=== PATIENT | male | born 1940 | race Caucasian/White ===

== ENCOUNTER 2018-11-20 09:14 | Emergency (ER) | payer MEDICARE ==
--- NOTE | 2018-11-20 09:35 | ED ---
HPI Chest Pain - HPI Summary HPI Summary: A 78 y/o male presents to [facility] with a chief complaint of chest pain since 00: 30 today. He notes that it is a constant pain. At triage he rated his pain as a 4/10 in severity. He also c/o cough and neck pain, claiming that his glands hurt. He denies sore throat, he describes his neck pain as a pressure. He denies fevers and chills or a Hx of bloodclots in his lungs or legs. He reports a Hx of HTN. He denies being around anyone who has been sick. He had surgery for a hernia. Vital signs while in room HR: 76bpm, O2 Sat: 97, BP: 138/82. - History of Current Complaint Chief Complaint: EDChestPainROMI Time Seen by Provider: 11/20/18 09:22 Hx Obtained From: Patient Onset/Duration: Started Hours Ago, Still Present Timing: Constant, Lasting Hours Initial Severity: Moderate Current Severity: Moderate Pain Intensity: 4 Pain Scale Used: 0-10 Numeric Chest Pain Location: Diffuse Chest Pain Radiates: No Character: Pressure/Squeezing Aggravating Factor(s): Nothing Alleviating Factor(s): Nothing Associated Signs and Symptoms: Positive: Cough, Other: - neck pain. Negative: Fever, Chills, Edema - Allergy/Home Medications Allergies/Adverse Reactions: Allergies Allergy/AdvReac Type Severity Reaction Status Date / Time moxifloxacin Allergy Rash Verified 11/20/18 09:24 Penicillins Allergy Rash Verified 11/20/18 09:24 Sulfa (Sulfonamide Allergy Rash Verified 11/20/18 09:24 Antibiotics) Home Medications: Home Medications Fish Oil 1,000 mg Softgel 2,000 mg PO DAILY 11/20/18 [History Confirmed 11/20/18 ] Levothyroxine Sodium 75 mcg PO QAM 11/20/18 [History Confirmed 11/20/18] Losartan Potassium 25 mg PO DAILY 11/20/18 [History Confirmed 11/20/18] Multivitamin [Once Daily] 1 tab PO DAILY 11/20/18 [History Confirmed 11/20/18] Simvastatin TAB(NF) [Zocor 10 MG (NF)] 10 mg PO QPM 11/20/18 [History Confirmed 11/20/18] Tamsulosin CAP* [Flomax CAP*] 0.4 mg PO DAILY 11/20/18 [History Confirmed ] Ubidecarenone [Co Q-10] 200 mg PO DAILY 11/20/18 [History Confirmed 11/20/18] PMH/Surg Hx/FS Hx/Imm Hx Endocrine/Hematology History: Reports: Hx Thyroid Disease - HYPOACTIVE Cardiovascular History: Reports: Hx Hypertension - CONTROL WITH MED, Other Cardiovascular Problems/Disorders - CHOLESTEROL CONTROL WITH MEDS Sensory History: Reports: Hx Contacts or Glasses - GLASSES Denies: Hx Hearing Aid Opthamlomology History: Reports: Hx Contacts or Glasses - GLASSES - Cancer History Cancer Type, Location and Year: cholesterol. prostate. pleurisy/pneumonia - Surgical History Surgery Procedure, Year, and Place: 2009 LEFT INGUINAL HERNIA REPAIR, [facility]. 1985 FIFTH METATARSAL LEFT HAND PINNED, [facility] – [place]. TONSILLECTOMY, [facility]. MELANOMA REMOVED TIMES 3, OFFICE Hx Anesthesia Reactions: No Infectious Disease History: No Infectious Disease History: Denies: Traveled Outside the [place] in Last 30 Days - Family History Known Family History: Negative: Blood Disorder - Social History Alcohol Use: Weekly Substance Use Type: Reports: None Amount Used/How Often: 1 PPD Length of Time of Smoking/Using Tobacco: 15 YEARS Review of Systems Negative: Fever, Chills ENT: Other - Positive: pain in glands on neck Negative: Sore Throat Positive: Chest Pain Positive: Cough All Other Systems Reviewed And Are Negative: Yes Physical Exam - Summary Physical Exam Summary: GENERAL: Patient is a well-developed and nourished M who is lying comfortable in the stretcher. Patient is not in any acute respiratory distress. HEAD AND FACE: Normocephalic EYES: PERRLA, EOMI x 2. EARS: Hearing grossly intact. MOUTH: Oropharynx within normal limits. NECK: Supple, trachea is midline, no adenopathy, no JVD, no carotid bruit. CHEST: Symmetric, no tenderness at palpation LUNGS: Decreased breath sounds at bases. No wheezing or crackles. CVS: Regular rate and rhythm, S1 and S2 present, no murmurs or gallops appreciated. ABDOMEN: Soft, non-tender. Bowel sounds are normal. No abdominal abnormal pulsations. EXTREMITIES: Full ROM in all major joints, no edema, no cyanosis or clubbing. NEURO: Alert and oriented x 3. No acute neurological deficits. Speech is normal and follows commands. SKIN: Dry and warm Triage Information Reviewed: Yes Vital Signs On Initial Exam: Initial Vitals Temp Pulse Resp BP Pulse Ox 98.6 F 81 16 154/79 97 11/20/18 09:25 11/20/18 09:25 11/20/18 09:25 11/20/18 09:25 11/20/18 09:25 Vital Signs Reviewed: Yes Diagnostics - Vital Signs Vital Signs Temp Pulse Resp BP Pulse Ox 11/20/18 09:25 98.6 F 81 16 154/79 97 - Laboratory Result Diagrams: 11/20/18 09:43 11/20/18 09:43 Lab Statement: Any lab studies that have been ordered have been reviewed, and results considered in the medical decision making process. - Radiology CXR Radiology Interpretation Completed By: Radiologist Summary of Radiographic Findings: NO ACTIVE CARDIOPULMONARY DISEASE IS NOTED. ED physician has reviewed this imaging report. - CT chest/thorax CTA CT Interpretation Completed By: Radiologist Summary of CT Findings: No pulmonary embolus is noted. No evidence of aortic dissection or aneurysmal. dilatation. Dependent changes in lung field. Nodule in the right lower lobe the. costophrenic angle with coarse calcification may represent a granuloma. This measures 12. mm. ED physician has reviewed this imaging report. - EKG 09:26 Cardiac Rate: NL - 74 bpm EKG Rhythm: Sinus Rhythm Summary of EKG Findings: Normal sinus rhytm at 74 bpm, PACs and prolonged [place]. Chest Pain Course/Dx - Course Course Of Treatment: A 78 y/o male presents to [facility] with a chief complaint of chest pain since 00:30 today. Workup is remarkable. The physical exam revealed decreased breath sounds at bases. EKG at 09:26 ahowed Normal sinus rhytm at 74 bpm, PACs and prolonged [place]. CXR impression: NO ACTIVE CARDIOPULMONARY DISEASE IS NOTED. Bloodwork and chemisties obtained and are WNL. The patient tested negative for influenza A, influenza B and Group A Strep. Urines obtained. Urine blood 2+, Urine RBC 2+ and Urine Bacteria 1+. Chest/thorax CTA impression: No pulmonary embolus is noted. No evidence of aortic dissection or aneurysmal. dilatation. Dependent changes in lung field. Nodule in the right lower lobe the. costophrenic angle with coarse calcification may represent a granuloma. This measures 12. mm.The patient will be admitted. Case discussed with hospitalist, Dr. Tobin. I discussed results with patient. The patient agrees with this plan. - Diagnoses Provider Diagnoses: Chest pain - Provider Notifications Discussed Care Of Patient With: Ellen Tobin Time Discussed With Above Provider: 12:44 Instructed by Provider To: Admit As Inpatient Discharge - Sign-Out/Discharge Documenting (check all that apply): Patient Departure - admit Patient Received Moderate/Deep Sedation with Procedure: No - Discharge Plan Condition: Fair Disposition: ADMITTED TO [facility] Referrals: Caio Sanabria MD [Primary Care Provider] - - Billing Disposition and Condition Condition: FAIR Disposition: Admitted to [facility] - Attestation Statements Document Initiated by Scribe: Yes Documenting Scribe: Reyes Locke Provider For Whom Prosper is Documenting (Include Credential): Jin Evans MD Scribe Attestation: Reyes Calderon, scribed for Jin Evans MD on 11/20/18 at 1424. Scribe Documentation Reviewed: Yes Provider Attestation: The documentation as recorded by the Reyes rosenberg accurately reflects the service I personally performed and the decisions made by , Regulo Evans MD Status of Scribe Document: Viewed
[2018-11-20 10:06] LABS: ABS Basophils 0 10^3/ul (0-0.2); ABS Eosinophils 0.1 10^3/ul (0-0.6); ABS Lymphocytes 1.1 10^3/ul (1.0-4.8); ABS Monocytes 1.1 10^3/ul (0-0.8); ABS Neutrophils 6.5 10^3/ul (1.5-7.7); ABS Nucleated RBC 0 10^3/ul; Eosinophil % 1.1 %; Hematocrit 43 % (36-46); Hemoglobin 14.3 g/dL (14.0-18.0); Mean Corpuscular HGB Conc 34 g/dL (31-36); Mean Corpuscular Hemoglobin 29 pg (27-31); Mean Corpuscular Volume 88 fL (80-94); Mean Platelet Volume 8.9 fL (7.4-10.4); Nucleated Red Blood Cells % 0.2; Platelet Count 179 10^3/uL (150-450); Red Blood Count 4.88 10^6 /uL (4.18-5.48); Red Cell Distribution Width 13 % (10.5-15); White Blood Count 8.9 10^3/uL (3.5-10.8)
[2018-11-20 10:23] LABS: Activated Partial Thrombo Time 27.8 seconds (26.0-36.3); INR 0.92 (0.77-1.02)
[2018-11-20 10:25] LABS: Albumin 3.9 g/dL (3.2-5.2); Albumin/Globulin Ratio 1.3 (1-3); BUN/Creatinine Ratio 18.8 (8-20); EGFR African American 63.3 (>60); EGFR Non-African American 52.3 (>60); Magnesium 1.9 mg/dL (1.9-2.7); Potassium 4.5 mmol/L (3.5-5.0); Total Protein 6.9 g/dL (6.4-8.9)
[2018-11-20 10:41] LABS: Influenza A Molecular NEGATIVE (Negative); Influenza B Molecular NEGATIVE (Negative)
[2018-11-20 10:48] LABS: Urine Appearance Clear; Urine Bacteria 1+ (Absent); Urine Bilirubin Negative (Negative); Urine Blood 2+ (Negative); Urine Color Yellow; Urine Glucose Negative (Negative); Urine Ketones Negative (Negative); Urine Nitrite Negative (Negative); Urine Protein Negative (Negative); Urine Red Blood Cell 2+(6-10/hpf) (Absent); Urine Specific Gravity 1.013 (1.010-1.030); Urine Urobilinogen Negative (Negative); Urine White Blood Cell Trace(0-5/hpf) (Absent)
[2018-11-20] MEDS ORDERED: Iodixanol* (CONTRAST) 320 MG/ML 100 ML SDV IV ONE (11:00)
[2018-11-20] MEDS ORDERED: Nitroglycerin TAB 0.4 MG* 0.4 MG TAB SL ONE (12:17)
[2018-11-20] MEDS ORDERED: Aspirin 81 mg CHEW TAB* 81 MG TAB.CHEW PO ONE (12:17)
[2018-11-20] MEDS ORDERED: Nitroglycerin TAB 0.4 MG* 0.4 MG TAB ONE (12:20)
[2018-11-20] MEDS ORDERED: Aspirin 81 mg CHEW TAB* 81 MG TAB.CHEW ONE (12:20)
[2018-11-20 15:14] VITALS: BP 145/81
[2018-11-20 15:15] LABS: HDL Cholesterol 51.4 mg/dL
--- NOTE | 2018-11-20 18:34 | CONS ---
[facility] MED[facility] CONSULTATION REPORT: DATE OF CONSULT: 11/20/18 - EMERGENCY DEPT PROVIDER: Sharon Aleman NP ATTENDING PHYSICIAN: Dr. Evans, emergency room. CONSULTING PHYSICIAN: Dr. Ellen Tobin (dictated by Sharon Aleman NP). REASON FOR CONSULT: Chest pain. HISTORY OF PRESENT ILLNESS: Mr. Genao is a 78-year-old male with a past medical history significant for hypertension, hyperlipidemia, BPH, and hypothyroid, who presented to the emergency room with complaints of right-sided chest pain since 12:30 a.m. He does report this is a constant dull ache near his right shoulder. He does report it becomes worse with deep breath. He does not report any relieving factors. He does report that the pain remained uncomfortable and he was unable to sleep, only slept approximately 2 hours during the night. The patient denies any change in the pain with position changes. He denies any recent heavy lifting. Denies any change in pain with exertion or activity. He denies any recent chest pain development with walking or activities. He denies any shortness of breath, diaphoresis, or nausea associated with this chest pain. Due to his chest pain, we were asked to see him in consultation by the emergency room physician. While in the emergency room, the patient was given aspirin and nitroglycerin with no relief of his symptoms or changes in his symptoms. PAST MEDICAL HISTORY: 1. Hypertension. 2. Hyperlipidemia. 3. BPH. 4. Hypothyroid. PAST SURGICAL HISTORY: Melanoma removal from his back in 2011, basal cell carcinoma removal, tonsillectomy, internal fixation of left fifth metacarpal fracture. HOME MEDICATIONS: 1. CoQ10 200 mg p.o. daily. 2. Tamsulosin 0.4 mg p.o. daily. 3. Multivitamin 1 tab p.o. daily. 4. Fish oil 2000 mg p.o. daily. 5. Aspirin 81 mg p.o. daily. 6. Simvastatin 10 mg p.o. q.p.m. 7. Losartan 25 mg p.o. daily. 8. Levothyroxine 75 mcg p.o. daily. ALLERGIES: Allergy to MOXIFLOXACIN, PENICILLIN, and SULFA, all associated with rashes. FAMILY HISTORY: Mother with a history of an ME with pacemaker placement in her 80s. Brother with a history of ME at the age of 79. No reported history of diabetes. Grandmother with a history of colon cancer. SOCIAL HISTORY: The patient quit smoking in 1969. Prior to that, he smoked for approximately 15 years. Reports occasional alcohol use. Denies any illicit drug use. He is retired. He is . Surrogate decision maker in the event he is unable to make his own decisions is or his daughter. He is a full code. REVIEW OF SYSTEMS: He denies any fevers, unintended weight loss. He does report right-sided chest pain near his right shoulder. He denies any radiation of the pain to his neck or back. No edema. Denies any cough, hemoptysis, or shortness of breath. No nausea, vomiting, diarrhea, or abdominal pain. No gross hematuria or dysuria, focal weakness or sensory loss. Denies any visual complaints, dysphagia. Denies arthralgias, myalgias, rashes, lesions, psychosis , or anxiety. PHYSICAL EXAM: Vital Signs: Temperature 99.1, heart rate 81, respirations 17, O2 saturation 98%, blood pressure 145/81. General: At this time, Mr. Genao is alert and oriented. He is sitting on the stretcher in the emergency room. He does not appear to be in any acute distress. HEENT: Head is atraumatic, normocephalic. Eyes: EOMs are intact. Sclerae anicteric and not pale. Oral mucosa appeared to be moist. Neck is supple. Lungs are clear to auscultation bilaterally. No wheezes, rales, or rhonchi. Cardiac: S1, S2. Regular rate and rhythm. No murmurs, rubs, or gallops. Abdomen is soft and nontender. Bowel sounds are present x4. Extremities: He is able to move all 4 extremities with 5/5 strength. Pedal pulses are +2 bilaterally. He has no lower extremity edema. Neurologic: He is awake, alert, oriented x3. Speech is clear. Thought process is intact. There are no gross focal deficits. Skin is intact. DIAGNOSTIC STUDIES/LAB DATA: WBCs were 8.9, RBCs 4.88, hemoglobin 14.3, hematocrit was 43, platelet count was 179. INR 0.92, aPTT was 27.8. Sodium 136 , potassium 4.5, chloride 104, carbon dioxide was 27, anion gap was 5, BUN was 25, creatinine 1.33, lactic acid was 1.7, calcium 9.0, magnesium 1.9. ASTs were 22, ALTs were 22, alkaline phosphatase was 53. Troponin was 0.00 x2, BNP was 111. Triglycerides were 162, cholesterol 169, LDL was 105. Urine was within normal limits. Urine blood was 2+ and urine wbc's were 2+, urine bacteria was 1+. Flu A and B were negative. Strep was negative. He had a CT of the chest, radiologist's impression: No pulmonary embolism was noted. No evidence of aortic dissection or aneurysmal dilation. Dependent changes in the lung aiken. Nodule in the right lower lobe costophrenic angle with coarse calcification, may represent a granuloma. This measures 12 mm. He had a chest x-ray. No active cardiopulmonary disease. He had an electrocardiogram, which showed sinus rhythm with PACs. No ST elevation. He does have T-wave inversions in III, aVF and V1, which appeared to be nonspecific changes. This was also reviewed by Dr. Lux from Cardiology. IMPRESSION AND PLAN: Mr. Genao is a 78-year-old male with a past medical history significant for hypertension and hyperlipidemia, who presented to the emergency room with complaints of right-sided chest pain since 12:30 a.m. that has been constant dull ache. We were asked to see and evaluate him due to right -sided chest pain. Our recommendations are as follows: 1. Chest pain. I recommend that the patient return to the hospital on Friday for an outpatient nuclear exercise stress test. This has been ordered and the patient has been given a time of 8 o'clock arrival time for Friday. The patient was instructed to return to the emergency room for any changes in his chest pain, increased shortness of breath, dizziness, nausea, vomiting, or any other concerning symptoms. The patient was advised to take an ambulance and not to drive himself to the emergency room. He should continue on his 81 mg of aspirin and statin as previously prescribed. He did have troponins that remain 0.00 x2 in the emergency room. I did review the case with Dr. Lux from Cardiology, who recommended outpatient stress test on Friday. The patient does have a ELENI score of 2 giving him an 8% risk at 14 days of all-cause mortality of new or recurrent myocardial infarction or severe recurrent ischemia requiring urgent revascularization. The patient was instructed no caffeine for 24 hours prior to test and no eating 4 hours prior to the test. 2. Hypertension. He should continue on his losartan as previously prescribed. 3. Hypothyroid. He should continue on his levothyroxine as previously prescribed. 4. Hyperlipidemia. He should continue on his simvastatin as previously prescribed. 5. Elevated BUN and creatinine. He does have mild elevation in his BUN and creatinine. I would encourage hydration. The patient should have a repeat BMP in a week. At this point, I would recommend that the patient be discharged home and he can return for outpatient cardiac nuclear stress test on Friday at 8 a.m. The patient and his family have been advised of these recommendations and his time for his nuclear stress test. I have discussed this with Dr. Evans, the emergency room physician; she is in agreement with the plan. I have also discussed this with my attending, Dr. Ellen Tobin; she is also in agreement with my plan. SHARON ALEMAN, NEYMAR [id number]/[facility] #: [id number] TAHIR
== END 2018-11-20 15:13 | disposition home or self-care (01) ==
LOC: ED 09:14
DX: R07.89 Other chest pain (principal); R05 Cough; M54.2 Cervicalgia; E03.9 Hypothyroidism, unspecified; I10 Essential (primary) hypertension; E78.5 Hyperlipidemia, unspecified; N40.0 Benign prostatic hyperplasia without lower urinary tract symptoms; R79.89 Other specified abnormal findings of blood chemistry; Z86.718 Personal history of other venous thrombosis and embolism; Z88.1 Allergy status to other antibiotic agents; Z88.0 Allergy status to penicillin; Z88.2 Allergy status to sulfonamides; Z87.891 Personal history of nicotine dependence
CPT/HCPCS: 36415; 71045; 71275; 80053; 80061; 81003; 81015; 83605; 83735; 83880; 84484; 85025; 85610; 85730; 87086; 87651; 93005; 99283; A9270-GY; Q9967